=== PATIENT | female | born 1950 | race Caucasian/White ===

== ENCOUNTER 2017-11-23 13:51 | Outpatient (REF) | payer MEDICARE, SELFPAY ==
[2017-11-23 23:40] LABS: Abs Immature Grans 0.05 k/cumm (0.0-0.09); Absolute Basophil Count 0.06 k/cumm (0.0-0.2); Absolute Eosinophil Count 0.28 k/cumm (0.0-0.7); Absolute Lymphocyte Count 2.89 k/cumm (1.2-3.4); Absolute Monocyte Count 0.65 k/cumm (0.11-0.7); Absolute Neutrophil Count 5.39 k/cumm (1.2-6.7); Basophils % 0.6; HCT 43.5 % (36.0-46.0); HGB 13.7 g/dL (12.0-15.5); Immature Grans % 0.5; Mean Corp. HGB Concentration 31.5 g/dL (32.0-36.0); Mean Corpuscular Hemoglobin 27.6 pg (27.0-33.0); Mean Corpuscular Volume 87.5 fL (80-95); Mean Platelet Volume 10.8 fL (8.0-11.0); Neutrophils % 57.9; Platelet Count 326 x1000/uL (130-400); RBC 4.97 m/cumm (4.00-5.20); RBC Distribution Width 14.7 % (11.7-14.6); White Blood Cell Count 9.32 k/cumm (4.4-10.8)
[2017-11-23 23:51] LABS: Anion Gap 6.1 mmol/L (3-11); BUN 10 mg/dL (7-18); CO2 29.9 mmol/L (21.0-32.0); CREATININE 0.93 mg/dL (0.55-1.02); Calcium 9.7 mg/dL (8.5-10.1); Chloride 107 mmol/L (98-107); Estimated GFR 59.95 (mL/min/1.73m2); Glucose 98 mg/dL (70-100); Potassium 5.3 mmol/L (3.5-5.1); Sodium 143 mmol/L (136-145)
== END 2017-11-23 14:11 ==
LOC: NCHCN 13:51
PROVIDERS: Visit Provider Registered Nurse
DX: R55 Syncope and collapse (principal)
CPT/HCPCS: 80048; 85025

== ENCOUNTER 2017-12-12 11:59 | Outpatient (REF) | payer MEDICARE, SELFPAY | END 2017-12-12 12:19 | LOC: NCHCN 11:59 | PROVIDERS: Visit Provider Family Medicine | DX: I10 Essential (primary) hypertension (principal); E03.9 Hypothyroidism, unspecified; E78.5 Hyperlipidemia, unspecified; E11.9 Type 2 diabetes mellitus without complications | CPT/HCPCS: 84132 ==

== ENCOUNTER 2018-01-18 17:55 | Outpatient (REF) | payer MEDICARE, SELFPAY ==
[2018-01-18 22:44] LABS: Potassium 3.8 mmol/L (3.5-5.1)
== END 2018-01-18 18:15 ==
LOC: NCHCN 17:55
PROVIDERS: Visit Provider Family Medicine
DX: Z86.39 Personal history of other endocrine, nutritional and metabolic disease (principal); R69 Illness, unspecified
CPT/HCPCS: 84132

== ENCOUNTER 2018-07-19 16:26 | Outpatient (REF) | payer MEDICARE, SELFPAY ==
[2018-07-19 22:28] LABS: ALT 25 U/L (12-78); AST 15 U/L (15-37); Albumin 3.9 g/dL (3.4-5.0); Alkaline Phosphatase 150 U/L (46-116); Anion Gap 9.3 mmol/L (3-11); BUN 11 mg/dL (7-18); Bilirubin, Total 0.5 mg/dL (0.2-1.0); CO2 27.7 mmol/L (21.0-32.0); Calcium 9.2 mg/dL (8.5-10.1); Chloride 103 mmol/L (98-107); Glucose 87 mg/dL (70-100); Sodium 140 mmol/L (136-145); TSH (W/Ref FT4) 2.88 uIU/mL (0.358-3.74); Total Protein 7.3 g/dL (6.4-8.2)
== END 2018-07-19 16:46 ==
LOC: NCHCN 16:26
PROVIDERS: Visit Provider Family Medicine
DX: E03.9 Hypothyroidism, unspecified (principal); I10 Essential (primary) hypertension
CPT/HCPCS: 80053; 84443

== ENCOUNTER 2019-01-16 13:11 | Outpatient (REF) | payer MEDICARE, SELFPAY ==
[2019-01-16 22:53] LABS: ALT 27 U/L (14-59); AST 17 U/L (15-37); Albumin 3.9 g/dL (3.4-5.0); Alkaline Phosphatase 150 U/L (46-116); Bilirubin, Direct 0.12 mg/dL (0.00-0.20); Bilirubin, Total 0.5 mg/dL (0.2-1.0); Total Protein 7.1 g/dL (6.4-8.2)
== END 2019-01-16 13:31 ==
LOC: NCHCN 13:11
PROVIDERS: Visit Provider Family Medicine
DX: E11.9 Type 2 diabetes mellitus without complications (principal); M79.10 Myalgia, unspecified site
CPT/HCPCS: 80076; 83036

== ENCOUNTER 2019-07-16 11:12 | Outpatient (REF) | payer MEDICARE, SELFPAY ==
[2019-07-16 21:08] LABS: Anion Gap 6.9 mmol/L (3-11); BUN 14 mg/dL (7-18); CO2 30.1 mmol/L (21.0-32.0); CREATININE 0.82 mg/dL (0.55-1.02); Calcium 9.6 mg/dL (8.5-10.1); Chloride 103 mmol/L (98-107); Glucose 188 mg/dL (74-106); Potassium 3.8 mmol/L (3.5-5.1); Sodium 140 mmol/L (136-145)
[2019-07-16 21:19] LABS: Hemoglobin A1C 6.2 % (3.8-5.6)
[2019-07-16 23:46] LABS: Vitamin D 25 Total 14.5 ng/ml (30-100)
== END 2019-07-16 11:32 ==
LOC: NCHCN 11:12
PROVIDERS: Visit Provider Family Medicine
DX: E11.9 Type 2 diabetes mellitus without complications (principal); R74.8 Abnormal levels of other serum enzymes; E55.9 Vitamin D deficiency, unspecified; I10 Essential (primary) hypertension
CPT/HCPCS: 80048; 82306; 83036

== ENCOUNTER 2020-01-08 10:35 | Outpatient (REF) | payer MEDICARE, SELFPAY ==
[2020-01-08 22:18] LABS: Anion Gap 9.8 mmol/L (3-11); BUN 22 mg/dL (7-18); CO2 27.2 mmol/L (21.0-32.0); Calcium 9.2 mg/dL (8.5-10.1); Calculated LDL 75 mg/dL (<100); Chloride 105 mmol/L (98-107); Cholesterol 161 mg/dL (<200); Estimated GFR 40.49 (mL/min/1.73m2); Glucose 99 mg/dL (74-106); HDL Cholesterol 41 mg/dL (40-60); Sodium 142 mmol/L (136-145); TSH 2.29 uIU/mL (0.36-3.74); Triglyceride 225 mg/dL (<150)
== END 2020-01-08 10:55 ==
LOC: NCHCN 10:35
PROVIDERS: Visit Provider Family Medicine
DX: E03.9 Hypothyroidism, unspecified (principal); E11.9 Type 2 diabetes mellitus without complications; E78.5 Hyperlipidemia, unspecified; I10 Essential (primary) hypertension
CPT/HCPCS: 80048; 80061; 84443

== ENCOUNTER 2020-01-11 10:32 | Outpatient (REF) | payer MEDICARE, SELFPAY ==
[2020-01-11 21:45] LABS: Anion Gap 8.4 mmol/L (3-11); BUN 18 mg/dL (7-18); CO2 27.6 mmol/L (21.0-32.0); CREATININE 1.15 mg/dL (0.55-1.02); Calcium 9.7 mg/dL (8.5-10.1); Chloride 103 mmol/L (98-107); Estimated GFR 46.65 (mL/min/1.73m2); Glucose 115 mg/dL (74-106); Potassium 4.1 mmol/L (3.5-5.1); Sodium 139 mmol/L (136-145)
== END 2020-01-11 10:52 ==
LOC: NCHCN 10:32
PROVIDERS: Visit Provider Family Medicine
DX: I10 Essential (primary) hypertension (principal); E11.8 Type 2 diabetes mellitus with unspecified complications
CPT/HCPCS: 80048

== ENCOUNTER 2021-02-23 17:10 | Outpatient (REF) | payer OTHER, MEDICAID, SELFPAY ==
[2021-02-23 19:16] LABS: TSH 1.71 uIU/mL (0.36-3.74)
== END 2021-02-23 17:11 | disposition home or self-care (01) ==
LOC: NCHCN 17:10
PROVIDERS: Visit Provider Family Medicine
DX: E03.9 Hypothyroidism, unspecified (principal)
CPT/HCPCS: 84443

== ENCOUNTER 2021-04-28 18:04 | Outpatient (REF) | payer OTHER, MEDICAID, SELFPAY ==
[2021-04-28 21:40] LABS: ALT 27 U/L (14-59); AST 20 U/L (15-37); Albumin 3.7 g/dL (3.4-5.0); Alkaline Phosphatase 135 U/L (46-116); Anion Gap 11.4 mmol/L (3-11); BUN 18 mg/dL (7-18); Bilirubin, Total 0.4 mg/dL (0.2-1.0); CO2 25.6 mmol/L (21.0-32.0); CREATININE 0.9 mg/dL (0.55-1.02); Calcium 9.3 mg/dL (8.5-10.1); Calculated LDL 76 mg/dL (<100); Chloride 103 mmol/L (98-107); Cholesterol 152 mg/dL (<200); Glucose 97 mg/dL (74-106); HDL Cholesterol 50 mg/dL (40-60); Potassium 3.9 mmol/L (3.5-5.1); Sodium 140 mmol/L (136-145); Triglyceride 133 mg/dL (<150)
== END 2021-04-28 18:05 | disposition home or self-care (01) ==
LOC: NCHCN 18:04
PROVIDERS: Visit Provider Family Medicine
DX: E11.8 Type 2 diabetes mellitus with unspecified complications (principal); E78.5 Hyperlipidemia, unspecified; I10 Essential (primary) hypertension
CPT/HCPCS: 80053; 80061

== ENCOUNTER 2021-11-25 21:43 | Outpatient (REF) | payer OTHER, MEDICAID, SELFPAY ==
[2021-11-25 22:40] LABS: Anion Gap 7.1 mmol/L (3-11); BUN 14 mg/dL (7-18); CO2 27.9 mmol/L (21.0-32.0); CREATININE 0.9 mg/dL (0.55-1.02); Calcium 9.3 mg/dL (8.5-10.1); Chloride 105 mmol/L (98-107); Estimated GFR 67.92 (mL/min/1.73m2); Glucose 121 mg/dL (74-106); Potassium 3.8 mmol/L (3.5-5.1); Sodium 140 mmol/L (136-145)
== END 2021-11-25 21:44 | disposition home or self-care (01) ==
LOC: NCHCN 21:43
PROVIDERS: Visit Provider Family Medicine
DX: I10 Essential (primary) hypertension (principal)
CPT/HCPCS: 80048

== ENCOUNTER 2022-02-23 17:50 | Outpatient (REF) | payer OTHER, SELFPAY ==
[2022-02-23 16:32] LABS: TSH 2.43 uIU/mL (0.36-3.74)
== END 2022-02-23 17:51 | disposition home or self-care (01) ==
LOC: NCHCN 17:50
PROVIDERS: Visit Provider Family Medicine
DX: E03.9 Hypothyroidism, unspecified (principal)
CPT/HCPCS: 84443

== ENCOUNTER 2022-10-27 14:19 | Outpatient (REF) | payer OTHER, SELFPAY ==
[2022-10-27 21:01] LABS: Hemoglobin A1C 5.5 % (<5.7)
[2022-10-27 21:03] LABS: Anion Gap 9.3 mmol/L (3-11); BUN 21 mg/dL (7-18); CO2 26.7 mmol/L (21.0-32.0); Calcium 9.6 mg/dL (8.5-10.1); Chloride 104 mmol/L (98-107); Estimated GFR 59.49 (mL/min/1.73m2); Glucose 91 mg/dL (74-106); Sodium 140 mmol/L (136-145)
== END 2022-10-27 14:20 | disposition home or self-care (01) ==
LOC: NCHCN 14:19
PROVIDERS: Visit Provider Family Medicine
DX: E11.8 Type 2 diabetes mellitus with unspecified complications (principal); I10 Essential (primary) hypertension; E66.3 Overweight
CPT/HCPCS: 80048; 83036

== ENCOUNTER 2023-02-18 15:03 | Emergency (ER) | payer OTHER, SELFPAY ==
[2023-02-18 15:11] VITALS: BP 112/54; PULSE 72; RESP 18; TEMP 36.5; O2SAT 95
--- NOTE | 2023-02-18 16:00 | RT.EKG_ITS ---
APPROVED REPORT Exam: Resting ECG Reason for Exam: weakness Patient Location: E HR:65 bpm ECG Measurements Heart Rate 65 AXIS MN 127 P 40 QRSd 82 QRS 1 QT 399 T 15 QTc 413 Conclusion Sinus rhythm...normal P axi pvc
--- OUTSIDE RECORDS SUMMARY | 2023-02-18 16:00 | XMS_ITS | Continuity of Care Document ---
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 Name Role Phone [facility]ici an Encounter [facility] Date(s): 01/17/23 - 01/17/[address] [id number] Encounter Diagnosis Head injury(Discharge Diagnosis) - 01/17/23 Fall at home(Discharge Diagnosis) - 01/17/[address] in unspecified non-institutional (private) residence as the place of occurrence of the external cause(Discharge Diagnosis) - 01/17/23 Discharge Disposition: Home or Self Care Attending Physician: Hugo Pisano MD Admitting Physician: Hugo Pisano MD Allergies, Adverse Reactions, Alerts Substance Reaction Severity Status prochlorperazine Unknown Active lisinopril Unknown Active sulfa drugs Unknown Active Functional Status 01/17/23 Family Member Travel History No recent t ravel Recent Travel History No recent travel Other exposure to Infectious Disease Non e Immunizations Given and Recorded Vaccine Date Status Refusal Reason SARS-CoV-2 (COVID-19) mRNA-1273 vaccine 05/14/20 R ecorded SARS-CoV-2 (COVID-19) mRNA-1273 vaccine 04/14/20 R ecorded tetanus/diphth/pertuss (Tdap) adult/adol 12/19/19 Recorded Medications amLODIPine 10 mg =, Daily, 0 Refill(s) Start Date: 09/06/22 Status: Ordered atorvastatin 40 mg =, Daily, 0 Refill(s) Start Date: 09/06/22 Status: Ordered diclofenac 0 Refill(s) Start Date: 09/06/22 Status: Ordered dilTIAZem 120 mg =, Daily, 0 Refill(s) Start Date: 09/06/22 Status: Ordered FLUoxetine 40 mg =, Daily, 0 Refill(s) Start Date: 09/06/22 Status: Ordered gabapentin 100 mg =, 0 Refill(s) Start Date: 09/06/22 Status: Ordered levothyroxine 50 mcg =, 0 Refill(s) Start Date: 09/06/22 Status: Ordered losartan-hydrochlorothiazide 50mg-12.5mg oral tablet 2 tab, Oral, Daily, # 60 tab, 0 Refill(s) Start Date: 09/06/22 Status: Ordered metFORMIN 500 mg =, Daily, 0 Refill(s) Start Date: 09/06/22 Status: Ordered Vitamin D with Minerals oral tablet, chewable 0 Refill(s) Start Date: 09/06/22 Status: Ordered Mental Status 01/17/23 Eye Opening Response [place] Spontaneous ly Best Verbal Response Con Oriented Best Motor Response Con Obeys comman ds [place] Coma Score 15 Results Laboratory List Name Date CBC w/ Diff 01/17/23 Comprehensive Metabolic Panel 01/17/23 Troponin-I 01/17/23 Automated Diff 01/17/23 Most recent to oldest [Reference Range]: 1 WBC [5.0-10.0 x10^3/mcL] 11.8 x10^3/mcL *HI* (01/17/23 4:00 PM) RBC [4.1-5.3 x10^6/mcL] 5.3 x10^6/mcL (01/17/23 4:00 PM) Neutro Auto [40.0-75.0 %] 63.2 % (01/17/23 4:00 PM) Lymph Auto [20.0-50.0 %] 26.7 % (01/17/23 4:00 PM) Lyon Auto [2.0-15.0 %] 8.1 % (01/17/23 4:00 PM) Basophil Auto [0.0-1.0 %] 0.4 % (01/17/23 4:00 PM) BUN [7-18 mg/dL] 20 mg/dL *HI* (01/17/23 4:00 PM) Glucose Level [74-106 mg/dL] 123 mg/dL *HI* (01/17/23 4:00 PM) Potassium Level [3.5-5.1 mmol/L] 3.1 mmo l/L *LOW* (01/17/23 4:00 PM) MCV [80.0-96.0 fL] 84.2 fL (01/17/23 4:00 PM) AST [15-37 unit/L] 21 unit/L (01/17/23 4:00 PM) ALT [14-59 unit/L] 27 unit/L (01/17/23 4:00 PM) MCHC [31.0-35.0 g/dL] 33.9 g/dL (01/17/23 4:00 PM) Troponin-I [0.0-51.4 pg/mL] 6.7 pg/mL (01/17/23 4:00 PM) Sodium Level [136-145 mmol/L] 139 mmol/L (01/17/23 4:00 PM) Hct [37.0-47.0 %] 44.6 % (01/17/23 4:00 PM) Calcium Level [8.5-10.1 mg/dL] 9.7 mg/dL (01/17/23 4:00 PM) Albumin Level [3.4-5.0 g/dL] 4.2 g/dL (01/17/23 4:00 PM) Protein Total [6.4-8.2 g/dL] 7.5 g/dL (01/17/23 4:00 PM) MCH [26.0-32.0 pg] 28.5 pg (01/17/23 4:00 PM) Neutro Absolute 7.5 x10^3/mcL *NA* (01/17/23 4:00 PM) Bilirubin Total [0.2-1.0 mg/dL] 0.5 mg/d L (01/17/23 4:00 PM) Hgb [12.0-16.0 g/dL] 15.1 g/dL (01/17/23 4:00 PM) Alk Phos [46-146 unit/L] 94 unit/L (01/17/23 4:00 PM) Platelets [130-450 x10^3/mcL] 395 x10^3/ mcL (01/17/23 4:00 PM) CO2 [21-32 mmol/L] 26 mmol/L (01/17/23 4:00 PM) eGFR Non-AA [>=60] 59 *LOW* (01/17/23 4:00 PM) eGFR AA [>=60] 59 *LOW* (01/17/23 4:00 PM) Chloride Level [98-107 mmol/L] 100 mmol/ L (01/17/23 4:00 PM) RDW-CV [11.5-14.5 %] 13.4 % (01/17/23 4:00 PM) Imm Gran Auto [0.0-0.9 %] 0.8 % (01/17/23 4:00 PM) Creatinine Level [0.55-1.02 mg/dL] 1.01 mg/dL (01/17/23 4:00 PM) Eos, Auto [1.0-6.0 %] 0.8 % *LOW* (01/17/23 4:00 PM) Vital Signs Most recent to oldest [Reference Range]: 1 Temperature Temporal Artery [36-38 Deg C ] 36.2 Deg C (01/17/23 3:31 PM) Peripheral Pulse Rate [60-100 bpm] 75 bp m (01/17/23 3:31 PM) Respiratory Rate [12-24 br/min] 16 br/mi n (01/17/23 3:31 PM) Blood Pressure [90-140/60-90 mmHg] 116/7 2mmHg (01/17/23 3:31 PM) Mean Arterial Pressure, Cuff [65-140 mmH g] 87 mmHg (01/17/23 3:31 PM) Weight Dosing 66.00 kg (01/17/23 3:36 PM) Weight Estimated 66.00 kg (01/17/23 3:31 PM) Height 160.000 cm (01/17/23 3:36 PM) Height/Length Estimated 160.000 cm (01/17/23 3:31 PM) Social History Social History Type Response Tobacco Never tobacco user T obacco Use:. Sex Female Hospital Discharge Instructions Patient Education 01/17/2023 17:24:05 Head Injury, Adult, Fuch-ce-Twvy Head Injury, Adult There are many types of head injuries. They can be as minor as a small bump. Some head injuries canbe worse. Worse injuries include: ??? A strong hit to the head that shakes the brain back and forth, causing damage (concussion). ??? A bruise (contusion) of the brain. This means there is bleeding in the brain that can cause swelling. ??? A cracked skull (skull fracture). ??? Bleeding in the brain that gathers, gets thick (makes a clot), and forms a bump (hematoma). Most problems from a head injury come in the first 24 hours. However, you may still have side effects up to 7???10 days after your injury. It is important to watch your condition for any changes. Youmay need to be watched in the emergency department or urgent care, or you may need to stay in the hospital. What are the causes? There are many possible causes of a head injury. A serious head injury may be caused by: ??? A car accident. ??? Bicycle or motorcycle accidents. ??? Sports injuries. ??? Falls. ??? Being hit by an object. What are the signs or symptoms? Symptoms of a head injury include a bruise, bump, or bleeding where the injury happened. Other physical symptoms may include: ??? Headache. ??? Feeling like you may vomit (nauseous) or vomiting. ??? Dizziness. ??? Blurred or double vision. ??? Being uncomfortable around bright lights or loud noises. ??? Shaking movements that you cannot control (seizures). ??? Feeling tired. ??? Trouble being woken up. ??? Fainting or loss of consciousness. Mental or emotional symptoms may include: ??? Feeling grumpy or cranky. ??? Confusion and memory problems. ??? Having trouble paying attention or concentrating. ??? Changes in eating or sleeping habits. ??? Feeling worried or nervous (anxious). ??? Feeling sad (depressed). How is this treated? Treatment for this condition depends on how severe the injury is and the type of injury you have. The main goal is to prevent problems and to allow the brain time to heal. Mild head injury If you have a mild head injury, you may be sent home, and treatment may include: ??? Being watched. A responsible adult should stay with you for 24 hours after your injury and check on you often. ??? Physical rest. ??? Brain rest. ??? Pain medicines. Severe head injury If you have a severe head injury, treatment may include: ??? Being watched closely. This includes staying in the hospital. ??? Medicines to: ??? Help with pain. ??? Prevent seizures. ??? Help with brain swelling. ??? Protecting your airway and using a machine that helps you breathe (ventilator). ??? Treatments to watch for and manage swelling inside the brain. ??? Brain surgery. This may be needed to: ??? Remove a collection of blood or blood clots. ??? Stop the bleeding. ??? Remove a part of the skull. This allows room for the brain to swell. Follow these instructions at home: Activity ??? Rest. ??? Avoid activities that are hard or tiring. ??? Make sure you get enough sleep. ??? Let your brain rest. Do this by limiting activities that need a lot of thought or attention, such as: ??? Watching TV. ??? Playing memory games and puzzles. ??? Job-related work or homework. ??? Working on the computer, social media, and texting. ??? Avoid activities that could cause another head injury until your doctor says it is okay. This includes playing sports. Having another head injury, especially before the first one has healed, can be dangerous. ??? Ask your doctor when it is safe for you to go back to your normal activities, such as work or school. Ask your doctor for a dxav-bk-yvct plan for slowly going back to your normal activities. ??? Ask your doctor when you can drive, ride a bicycle, or use heavy machinery. Do not do these activities if you are dizzy. Lifestyle ??? Do not drink alcohol until your doctor says it is okay. ??? Do not use drugs. ??? If it is harder than usual to remember things, write them down. ??? If you are easily distracted, try to do one thing at a time. ??? Talk with family members or close friends when making important decisions. ??? Tell your friends, family, a trusted co-worker, and chamber worker about your injury, symptoms, and limits (restrictions). Have them watch for any problems that are new or getting worse. General instructions ??? Take kjcv-ahc-jdpkpfy and prescription medicines only as told by your doctor. ??? Have someone stay with you for 24 hours after your head injury. This person should watch you for any changes in your symptoms and be ready to get help. ??? Keep all follow-up visits as told by your doctor. This is important. How is this prevented? Work on your balance and strength. This can help you avoid falls. ??? Wear a seat belt when you are in a moving vehicle. ??? Wear a helmet when you: ??? Ride a bicycle. ??? Ski. ??? Do any other sport or activity that has a risk of injury. ??? If you drink alcohol: ??? Limit how much you use to: ??? 0???1 drink a day for non women. ??? 0???2 drinks a day for men. ??? Be aware of how much alcohol is in your drink. In the [place] one drink equals one 12 oz bottle of beer (355 mL), one 5 oz glass of wine (148 mL), or one 1?? oz glass of hard liquor (44 mL). ??? Make your home safer by: ??? Getting rid of clutter from the floors and stairs. This includes things that can make you trip. ??? Using grab bars in bathrooms and handrails by stairs. ??? Placing non-slip mats on floors and in bathtubs. ??? Putting more light in dim areas. Where to find more information ??? Centers for Disease Control and Prevention: www.cdc.gov Get help right away if: ??? You have: ??? A very bad headache that is not helped by medicine. ??? Trouble walking or weakness in your arms and legs. ??? Clear or bloody fluid coming from your nose or ears. ??? Changes in how you see (vision). ??? A seizure. ??? More confusion or more grumpy moods. ??? Your symptoms get worse. ??? You are sleepier than normal and have trouble staying awake. ??? You lose your balance. ??? The black centers of your eyes (pupils) change in size. ??? Your speech is slurred. ??? Your dizziness gets worse. ??? You vomit. These symptoms may be an emergency. Do not wait to see if the symptoms will go away. Get medical help right away. Call your local emergency services (911 in the [place] Do not drive yourself to the hospital. Summary ??? Head injuries can be as minor as a small bump. Some head injuries can be worse. ??? Treatment for this condition depends on how severe the injury is and the type of injury you have. ??? Have someone stay with you for 24 hours after your head injury. ??? Ask your doctor when it is safe for you to go back to your normal activities, such as work or school. ??? To prevent a head injury, wear a seat belt in a car, wear a helmet when you use a bicycle, limit your alcohol use, and make your home safer. This information is not intended to replace advice given to you by your health care provider. Make sure you discuss any questions you have with your health care provider. Document Revised: 01/18/2020 Document Reviewed: 01/18/2020 [employer] Patient Education ?? 2022 [employer]. 01/17/2023 17:24:03 Fall Prevention in the Home, Adult, Akbt-mv-Uyff Fall Prevention in the Home, Adult Falls can cause injuries and can happen to people of all ages. There are many things you can do to make your home safe and to help prevent falls. Ask for help when making these changes. What actions can I take to prevent falls? General Instructions ??? Use good lighting in all rooms. Replace any light bulbs that burn out. ??? Turn on the lights in dark areas. Use night-lights. ??? Keep items that you use often in wvuz-ss-isfsf places. Lower the shelves around your home if needed. ??? Set up your furniture so you have a clear path. Avoid moving your furniture around. ??? Do not have throw rugs or other things on the floor that can make you trip. ??? Avoid walking on wet floors. ??? If any of your floors are uneven, fix them. ??? Add color or contrast paint or tape to clearly frederick and help you see: ??? Grab bars or handrails. ??? First and last steps of staircases. ??? Where the edge of each step is. ??? If you use a stepladder: ??? Make sure that it is fully opened. Do not climb a closed stepladder. ??? Make sure the sides of the stepladder are locked in place. ??? Ask someone to hold the stepladder while you use it. ??? Know where your pets are when moving through your home. What can I do in the bathroom? Keep the floor dry. Clean up any water on the floor right away. ??? Remove soap buildup in the tub or shower. ??? Use nonskid mats or decals on the floor of the tub or shower. ??? Attach bath mats securely with double-sided, nonslip rug tape. ??? If you need to sit down in the shower, use a plastic, nonslip stool. ??? Install grab bars by the toilet and in the tub and shower. Do not use towel bars as grab bars. What can I do in the bedroom? Make sure that you have a light by your bed that is easy to reach. ??? Do not use any sheets or blankets for your bed that hang to the floor. ??? Have a firm chair with side arms that you can use for support when you get dressed. What can I do in the kitchen? Clean up any spills right away. ??? If you need to reach something above you, use a step stool with a grab bar. ??? Keep electrical cords out of the way. ??? Do not use floor jordanian or wax that makes floors slippery. What can I do with my stairs? Do not leave any items on the stairs. ??? Make sure that you have a light switch at the top and the bottom of the stairs. ??? Make sure that there are handrails on both sides of the stairs. Fix handrails that are broken or loose. ??? Install nonslip stair treads on all your stairs. ??? Avoid having throw rugs at the top or bottom of the stairs. ??? Choose a carpet that does not hide the edge of the steps on the stairs. ??? Check carpeting to make sure that it is firmly attached to the stairs. Fix carpet that is looseor worn. What can I do on the outside of my home? Use bright outdoor lighting. ??? Fix the edges of walkways and driveways and fix any cracks. ??? Remove anything that might make you trip as you walk through a door, such as a raised step or threshold. ??? Trim any bushes or trees on paths to your home. ??? Check to see if handrails are loose or broken and that both sides of all steps have handrails. ??? Install guardrails along the edges of any raised decks and porches. ??? Clear paths of anything that can make you trip, such as tools or rocks. ??? Have leaves, snow, or ice cleared regularly. ??? Use sand or salt on paths during winter. ??? Clean up any spills in your garage right away. This includes grease or oil spills. What other actions can I take? Wear shoes that: ??? Have a low heel. Do not wear high heels. ??? Have rubber bottoms. ??? Feel good on your feet and fit well. ??? Are closed at the toe. Do not wear open-toe sandals. ??? Use tools that help you move around if needed. These include: ??? Canes. ??? Walkers. ??? Scooters. ??? Crutches. ??? Review your medicines with your doctor. Some medicines can make you feel dizzy. This can increase your chance of falling. Ask your doctor what else you can do to help prevent falls. Where to find more information ??? Centers for Disease Control and Prevention, [employer]: www.cdc.gov ??? National Madeline on Aging: www.jarod.nih.gov Contact a doctor if: ??? You are afraid of falling at home. ??? You feel weak, drowsy, or dizzy at home. ??? You fall at home. Summary ??? There are many simple things that you can do to make your home safe and to help prevent falls. ??? Ways to make your home safe include removing things that can make you trip and installing grab bars in the bathroom. ??? Ask for help when making these changes in your home. This information is not intended to replace advice given to you by your health care provider. Make sure you discuss any questions you have with your health care provider. Document Revised: 12/07/2021 Document Reviewed: 10/08/2020 [employer] Patient Education ?? 2022 [employer] Follow Up Care 01/17/2023 15:31:32 With:Alyx Verduzco MD Address: [address] [id number]- When:1 to 2 weeks Physician Emergency department Note * Hugo Pisano MD: PERFORM Event Display: ED Note Physician Authored Date: [id number] JUSTYNACYRIL CONTE :1950 Age:72 years Sex:Female Visit Date:01/17/2023 Primary Care Physician: Alyx Verduzco MD Basic Information Time Seen: Hugo Pisano MD / 01/17/2023 15:37 Chief Complaint FFSH backwards while attemepting to open door, up and fell again. Not thinned, arrives collared, full recall of event. ??2x episode emesis s/p falling. C spine tenderness. a/ox4. Right sided shoulderpain. no pain at rest History Of Present Illness: 72-year-old female??with a history of falls, because of this she has a lifeline,??today she was attempting to open the door to??of the delivery driver to come in when she fell backwards striking the back of her head.?? She proceeded to fall a couple more times afterwards, she was nauseous and vomited atsome point.?? Has some tenderness to the back of her head, she states that she fell but did not??pass out. ??At no time did she have any difficulty breathing or palpitation or chest pain??or sudden onset of headache prior to falling.?? She states that she has some tenderness to her neck and back ofhead. ??No anterior chest pain or abdominal pain.?? She was nauseous after eating once yesterday but otherwise no vomiting or diarrhea. ??Denies any extremity??weakness or injuries.?? No recent illness. ?? Patient??has a walker and a quad cane but she was not using it when she fell today.?? Her doctoris in [place].?? Has a history of falls and therefore carries a lifeline. Review of Systems: Constitutional:??no??fever,??no??chills,? Skin:??no??Jaundice,??no??rash,??no lacerations or abrasions ENMT:??no??ear pain,??no??sore throat,??no??congestion,? Respiratory:??no??shortness of breath,??no??cough,?? ,??no??wheezing Cardiovascular:??no??chest pain,??no??palpitations,??no??edema Gastrointestinal:??no??nausea,??no??vomiting,??no??diarrhea,??no??GI bleeding, no abdominal pain, vomited once yesterday but not nauseous today Genitourinary:??no??dysuria,??no??hematuria,??no??discharge,??no??pain Musculoskeletal:??See HPI Neurologic:??mild??headache,??no??dizziness,??no??numbness,??no??weakness ?? Physical Exam Vitals & Measurements T:??36.2?C ??(Temporal Artery)?? HR:??75??(Peripheral)?? RR:??16?? BP:??116/72?? SpO2:??99%?? HT:??160.000??cm?? WT:??66.00??kg??(Estimated)?? General:??alert,??no acute distress. Skin:??warm,??dry. Head:??no??trauma,??normocephalic.?? No mondragon signs no raccoon eyes, Neck:??trachea??midline,??no??adenopathy,??mild subjective nonfocal posterior tenderness. Eye:??normal??conjunctiva, sclera??clear. Cardiovascular:??regular??rate and rhythm,??normal??peripheral perfusion. Respiratory: lungs??CTA, respirations??non-labored. Chest wall:??no??deformity. Gastrointestinal:??soft,??non distended,??no??tenderness,??no??guarding. Extremities:??no??deformity,??no??trauma. Palpation of the thoracic and lumbar spine are unremarkable.?? She does report that her tailbone isslightly sore. Neurological:??oriented??x 4, LOC??appropriate for age??, speech??normal.?? Moves all 4 extremities. Psychiatric:??cooperative, affect??appropriate for age,?? Medical Decision Making: Medical Decision-Making: Clinical lab tests: ordered and reviewed -??Yes Tests in the radiology section of CPT??: ordered and reviewed -??Yes Tests in the medicine section of CPT??: ordered and reviewed -??Yes De Obtain history from someone other than the patient -??Yes, EMS Review and summarize past medical records -??Yes ?? Independent visualization of images, tracings, or specimens? Yes ?? Patient stable here, she reports that she has a history of falls, does not appear that she had a syncope prior to falling, imaging unremarkable, labs also reassuring.?? Patient was hemodynamically stable here. ?? After imaging, the patient got up, sitting her blood pressure was 129/104??and standing up she was 93/66 but she was asymptomatic. ??Nevertheless we will give her a liter of fluid. ??She reports thatthe ambulance noted her pulse to be??in the 40s when they picked her up.?? We will likely plan on??Zio patch??prior to discharge. ?? Last 24 Hours?? Chemistry ? Event Name?? Event Result?? Date/Time?? Sodium Level 139 mmol/L 01/17/23 16:00:00 Potassium Level 3.1 mmol/L??Low 01/17/23 16:00:00 Chloride Level 100 mmol/L 01/17/23 16:00:00 CO2 26 mmol/L 01/17/23 16:00:00 Alk Phos 94 unit/L 01/17/23 16:00:00 AST 21 unit/L 01/17/23 16:00:00 ALT 27 unit/L 01/17/23 16:00:00 BUN 20 mg/dL??High 01/17/23 16:00:00 Glucose Level 123 mg/dL??High 01/17/23 16:00:00 Creatinine Level 1.01 mg/dL 01/17/23 16:00:00 eGFR AA 59??Low 01/17/23 16:00:00 eGFR Non-AA 59??Low 01/17/23 16:00:00 Calcium Level 9.7 mg/dL 01/17/23 16:00:00 Protein Total 7.5 g/dL 01/17/23 16:00:00 Albumin Level 4.2 g/dL 01/17/23 16:00:00 Bilirubin Total 0.5 mg/dL 01/17/23 16:00:00 Troponin-I 6.7 pg/mL 01/17/23 16:00:00 ? Hematology ? Event Name?? Event Result?? Date/Time?? WBC 11.8 x10^3/mcL??High 01/17/23 16:00:00 RBC 5.3 x10^6/mcL 01/17/23 16:00:00 Hgb 15.1 g/dL 01/17/23 16:00:00 Hct 44.6 % 01/17/23 16:00:00 MCV 84.2 fL 01/17/23 16:00:00 MCH 28.5 pg 01/17/23 16:00:00 MCHC 33.9 g/dL 01/17/23 16:00:00 RDW-CV 13.4 % 01/17/23 16:00:00 Platelets 395 x10^3/mcL 01/17/23 16:00:00 Neutro Auto 63.2 % 01/17/23 16:00:00 Lymph Auto 26.7 % 01/17/23 16:00:00 Lyon Auto 8.1 % 01/17/23 16:00:00 Eos, Auto 0.8 %??Low 01/17/23 16:00:00 Basophil Auto 0.4 % 01/17/23 16:00:00 Imm Gran Auto 0.8 % 01/17/23 16:00:00 Neutro Absolute 7.5 x10^3/mcL 01/17/23 16:00:00 ? XR Pelvis 1 or 2 Views PROCEDURE INFORMATION:?? Exam: XR Pelvis?? Exam date and time: 01/17/2023 4:17 PM?? Age: 72 years old?? Clinical indication: Trauma? TECHNIQUE:?? Imaging protocol: Radiologic exam of the pelvis.?? Views: 1 or 2 view.? COMPARISON:?? CR XR HIP LT MIN 2V AND PELVIS 05/03/2021 8:32 AM? FINDINGS:?? Bones/joints: Degenerative changes in both hips and lumbar spine.?? There is no evidence of acute fracture in any of the visualized?? osseous structures.. There is no evidence of malalignment or?? dislocation of any visualized joint.?? Soft tissues: Unremarkable.? IMPRESSION:?? 1. ?? There is no evidence of acute fracture in any of the visualized?? osseous structures..?? 2. ?? There is no evidence of malalignment or dislocation of any?? visualized joint.? Report signed by: Halle Gibbons On 01/17/2023 ??16:56:15 ? [1] ?? XR Chest 1 View PROCEDURE INFORMATION:?? Exam: XR Chest?? Exam date and time: 01/17/2023 4:17 PM?? Age: 72 years old?? Clinical indication: Fall? TECHNIQUE:?? Imaging protocol: Radiologic exam of the chest.?? Views: 1 view.? COMPARISON:?? CR XR RIBS W/PA CHEST LT 05/03/2021 8:32 AM? FINDINGS:?? Lungs: Unremarkable. No consolidation.?? Pleural spaces: Unremarkable. No pleural effusion. No pneumothorax.?? Heart/Mediastinum: Unremarkable. No cardiomegaly.?? Bones/joints: Unremarkable.? Intraperitoneal space: Surgical clips in the right upper quadrant? IMPRESSION:?? No acute process ?? Report signed by: Halle Gibbosn On 01/17/2023 ??16:55:41 ?? [2] ?? URL This document has an image ?? XR Ankle Complete 3+ Views Right PROCEDURE INFORMATION:?? Exam: XR Right Ankle?? Exam date and time: 01/17/2023 4:23 PM?? Age: 72 years old?? Clinical indication: Injury? TECHNIQUE:?? Imaging protocol: Radiologic exam of the right ankle.?? Views: 3 or more views.? COMPARISON:?? CR XR ANKLE COMPLETE MIN 3V RT 09/06/2022 2:23 PM? FINDINGS:?? Bones/joints: Degenerative changes in the medial and lateral?? malleolus. There is no evidence of acute fracture in any of the?? visualized osseous structures.. There is no evidence of malalignment?? or dislocation of any visualized joint. Degenerative changes in the?? tarsal bones?? Soft tissues: Normal.? IMPRESSION:?? 1. ?? There is no evidence of acute fracture in any of the visualized?? osseous structures..?? 2. ?? There is no evidence of malalignment or dislocation of any?? visualized joint.? Report signed by: Halle Gibbons On 01/17/2023 ??16:55:02 ?? [3] * Final Report * ?? CT Spine Cervical w/o Contrast PROCEDURE INFORMATION:?? Exam: CT Cervical Spine Without Contrast?? Exam date and time: 01/17/2023 4:17 PM?? Age: 72 years old?? Clinical indication: Trauma? TECHNIQUE:?? Imaging protocol: Computed tomography of the cervical spine without?? contrast.?? Radiation optimization: All CT scans at this facility use at least?? one of these dose optimization techniques: automated exposure?? control; mA and/or kV adjustment per patient size (includes targeted?? exams where dose is matched to clinical indication); or iterative?? reconstruction.? REPORTING DATA:?? Count of CT and Cardiac NM exams in prior 12 months: This patient has?? received 2 known CTs and 0 known cardiac nuclear medicine studies in?? the 12 months prior to the current study.? COMPARISON:?? CT SPINE CERVICAL WO CONTRAST 09/06/2022 2:17 PM? FINDINGS:?? Bones/joints: There is normal alignment but reversal of lordosis. No?? fracture. Diffuse degenerative disc disease and facet arthropathy.?? Canal stenosis is noted at C4-C5.? Lungs: Visualized lung apices are clear.? Soft tissues: Unremarkable.? IMPRESSION:?? No acute findings.? Report signed by: Jesus Arteaga On 01/17/2023 ??16:43:18 ? [4] * Final Report * ?? CT Brain/Head w/o Contrast PROCEDURE INFORMATION:?? Exam: CT Head Without Contrast?? Exam date and time: 01/17/2023 4:16 PM?? Age: 72 years old?? Clinical indication: Fall, pain? TECHNIQUE:?? Imaging protocol: Computed tomography of the head without contrast.?? Radiation optimization: All CT scans at this facility use at least?? one of these dose optimization techniques: automated exposure?? control; mA and/or kV adjustment per patient size (includes targeted?? exams where dose is matched to clinical indication); or iterative?? reconstruction.? REPORTING DATA:?? Count of CT and Cardiac NM exams in prior 12 months: This patient has?? received 2 known CTs and 0 known cardiac nuclear medicine studies in?? the 12 months prior to the current study.? COMPARISON:?? CT HEAD/BRAIN WO CONTRAST 09/06/2022 2:15 PM? FINDINGS:?? Brain: Mild parenchymal volume loss. Mild bilateral periventricular?? and subcortical white matter hypodensities are present compatible?? with small-vessel ischemic disease. No midline shift. No mass, acute?? infarct, hemorrhage, or extra-axial fluid collection.?? Cerebral ventricles: No ventriculomegaly.?? Paranasal sinuses: Visualized sinuses are unremarkable. No fluid?? levels.?? Mastoid air cells: Visualized mastoid air cells are well aerated.?? Bones/joints: Unremarkable. No acute fracture.?? Soft tissues: Unremarkable.? IMPRESSION:?? No acute intracranial abnormality.? Report signed by: Jesus Arteaga On 01/17/2023 ??16:39:51 ? [5] Procedure No Qualifying Data Assessment/Plan 1.??Head injury??S09.90XA Ordered: Discharge Patient, 01/17/23 18:24:00 EDT, Home Independently, Constant Indicator ?? 2.??Fall at home??W19.XXXA Ordered: Discharge Patient, 01/17/23 18:24:00 EDT, Home Independently, Constant Indicator ?? Unspecified place in unspecified non-institutional (private) residence as the place of occurrence of the external cause??Y92.009 ?? Patient Education Head Injury, Adult, Rtlk-an-Kumw Fall Prevention in the Home, Adult, Znjm-oo-Hwqr Follow Up With When Contact Information [facility], Alyx Yu MD Within 1 to 2 weeks [facility] [address] [place] [address]- Additional Instructions: Medication Reconciliation Unchanged [id number] Milligrams every day. ?? [id number] Milligrams every day. ?? diclofenac ?? [id number] Milligrams every day. ?? COKtswgqzu39 Milligrams every day. ?? [id number] Milligrams. ?? gerrrnddoqyzn15 Micrograms. ?? losartan-hydrochlorothiazide (losartan-hydrochlorothiazide 50mg-12.5mg oral tablet)2 tab Oral (given by mouth) every day. ?? [id number] Milligrams every day. ?? multivitamin with minerals (Vitamin D with Minerals oral tablet, chewable) Problem List/Past Medical History Ongoing No qualifying data Historical No qualifying data Medication Administration Given 0.9% NaCl bolus, 1000 mL, IV Bolus Allergies lisinopril prochlorperazine sulfa drugs Social History Electronic Cigarette/Vaping Electronic Cigarette Use: Never. Tobacco Never tobacco user Tobacco Use:. Diagnostic Results ECG EKG shows sinus rhythm at a rate of 71 bpm. ??No ischemic changes.?? Prolonged QT at??502 ms Diagnostic Study Interpretation: CT scans of head and neck per radiologist are unremarkable. ??X-rays of chest pelvis and right ankle as interpreted by me are unremarkable. Lab Results CBC and Differential?? LATEST RESULTS?? WBC?? 01/17/23 16:00?? 11.8 ??High?? RBC?? 01/17/23 16:00?? 5.3?? Hgb?? 01/17/23 16:00?? 15.1?? Hct?? 01/17/23 16:00?? 44.6?? MCV?? 01/17/23 16:00?? 84.2?? MCH?? 01/17/23 16:00?? 28.5?? MCHC?? 01/17/23 16:00?? 33.9?? RDW-CV?? 01/17/23 16:00?? 13.4?? Platelets?? 01/17/23 16:00?? 395?? Neutro Auto?? 01/17/23 16:00?? 63.2?? Lymph Auto?? 01/17/23 16:00?? 26.7?? Lyon Auto?? 01/17/23 16:00?? 8.1?? Eos, Auto?? 01/17/23 16:00?? 0.8 ??Low?? Basophil Auto?? 01/17/23 16:00?? 0.4?? Imm Gran Auto?? 01/17/23 16:00?? 0.8?? Neutro Absolute?? 01/17/23 16:00?? 7.5? Routine Chemistry?? LATEST RESULTS?? Sodium Level?? 01/17/23 16:00?? 139?? Potassium Level?? 01/17/23 16:00?? 3.1 ??Low?? Chloride Level?? 01/17/23 16:00?? 100?? CO2?? 01/17/23 16:00?? 26?? Alk Phos?? 01/17/23 16:00?? 94?? AST?? 01/17/23 16:00?? 21?? ALT?? 01/17/23 16:00?? 27?? BUN?? 01/17/23 16:00?? 20 ??High?? Glucose Level?? 01/17/23 16:00?? 123 ??High?? Creatinine Level?? 01/17/23 16:00?? 1.01?? eGFR AA?? 01/17/23 16:00?? 59 ??Low?? eGFR Non-AA?? 01/17/23 16:00?? 59 ??Low?? Calcium Level?? 01/17/23 16:00?? 9.7?? Protein Total?? 01/17/23 16:00?? 7.5?? Albumin Level?? 01/17/23 16:00?? 4.2?? Bilirubin Total?? 01/17/23 16:00?? 0.5? Cardiac Isoenzymes?? LATEST RESULTS?? Troponin-I?? 01/17/23 16:00?? 6.7? [1]??XR Pelvis 1 or 2 Views; DomainUser, Generated 01/17/2023 16:17 EDT [2]??XR Chest 1 View; DomainUser, Generated 01/17/2023 16:17 EDT [3]??XR Ankle Complete 3+ Views Right; DomainUser, Generated 01/17/2023 16:23 EDT [4]??CT Spine Cervical w/o Contrast; DomainUser, Generated 01/17/2023 16:17 EDT [5]??CT Brain/Head w/o Contrast; DomainUser, Generated 01/17/2023 16:16 EDT Electronically Signed on 01/17/23 06:25 PM Hugo Pisano MD Emergency department Discharge instructions * Hugo Pisano MD: PERFORM Event Display: ED Discharge Information Authored Date: [id number] JUSTYNACYRIL CONTE :1950 Age:72 years Sex:Female Visit Date:01/17/2023 Primary Care Physician: Alyx Verduzco MD Discharge Instructions We would like to thank you for allowing us to assist you with your healthcare needs. The following includes patient education materials and information regarding your injury/illness. Diagnosis from Today's Visit Head injury Fall at home Unspecified place in unspecified non-institutional (private) residence as the place of occurrence of the external cause Discharge Vitals Temperature??(Temporal Artery) 97.2 ??F (36.2 ??C) Heart Rate??(Peripheral) 75 Respiratory Rate?? 16 Blood Pressure?? 116/72?? Height?? 62.99 in (160.000 cm) Weight??(Estimated) 145.53 lb (66.00 kg) Allergies lisinopril prochlorperazine sulfa drugs What to Do Next Instructions from Your Care Team Wear heart monitor??as arranged.?? Move around slowly, use your walker or your cane to ambulate to prevent falls,??follow-up with your doctor in the next week or 2 to review results of heart monitor.?? Continue your usual meds the same. You Need to Schedule the Following Appointments Follow Up with??[facility], Alyx Yu MD When:??Within 1 to 2 weeks Where: [address] [address] You were treated today on an emergency basis; it may be agudelo to contact your primary care provider to notify them of your visit today. You may have been referred to your regular doctor or a specialist, please follow up as instructed. If your condition worsens or you can't get in to see the doctor, contact the Emergency Department. Medications What How Much When Instructions Next Dose Unchanged amLODIPine 10 Milligrams Every day Unchanged atorvastatin 40 Milligrams Every day Unchanged diclofenac Unchanged dilTIAZem 120 Milligrams Every day Unchanged FLUoxetine 40 Milligrams Every day Unchanged gabapentin 100 Milligrams Unchanged levothyroxine 50 Micrograms Unchanged losartan-hydrochlorothiazide (losartan-hydrochlorothiazide 50mg-12.5mg oral tablet) 2 tab Oral (given by mouth) Every day Unchanged metFORMIN 500 Milligrams Every day Unchanged multivitamin with minerals (Vitamin D with Minerals oral tablet, chewable) Education Materials Head Injury, Adult There are many types of head injuries. They can be as minor as a small bump. Some head injuries canbe worse. Worse injuries include: ? A strong hit to the head that shakes the brain back and forth, causing damage (concussion). ? A bruise (contusion) of the brain. This means there is bleeding in the brain that can cause swelling. ? A cracked skull (skull fracture). ? Bleeding in the brain that gathers, gets thick (makes a clot), and forms a bump (hematoma). Most problems from a head injury come in the first 24 hours. However, you may still have side effects up to 7???10 days after your injury. It is important to watch your condition for any changes. Youmay need to be watched in the emergency department or urgent care, or you may need to stay in the hospital. What are the causes? There are many possible causes of a head injury. A serious head injury may be caused by: ? A car accident. ? Bicycle or motorcycle accidents. ? Sports injuries. ? Falls. ? Being hit by an object. What are the signs or symptoms? Symptoms of a head injury include a bruise, bump, or bleeding where the injury happened. Other physical symptoms may include: ? Headache. ? Feeling like you may vomit (nauseous) or vomiting. ? Dizziness. ? Blurred or double vision. ? Being uncomfortable around bright lights or loud noises. ? Shaking movements that you cannot control (seizures). ? Feeling tired. ? Trouble being woken up. ? Fainting or loss of consciousness. Mental or emotional symptoms may include: ? Feeling grumpy or cranky. ? Confusion and memory problems. ? Having trouble paying attention or concentrating. ? Changes in eating or sleeping habits. ? Feeling worried or nervous (anxious). ? Feeling sad (depressed). How is this treated? Treatment for this condition depends on how severe the injury is and the type of injury you have. The main goal is to prevent problems and to allow the brain time to heal. Mild head injury If you have a mild head injury, you may be sent home, and treatment may include: ? Being watched. A responsible adult should stay with you for 24 hours after your injury and check onyou often. ? Physical rest. ? Brain rest. ? Pain medicines. Severe head injury If you have a severe head injury, treatment may include: ? Being watched closely. This includes staying in the hospital. ? Medicines to: ? Help with pain. ? Prevent seizures. ? Help with brain swelling. ? Protecting your airway and using a machine that helps you breathe (ventilator). ? Treatments to watch for and manage swelling inside the brain. ? Brain surgery. This may be needed to: ? Remove a collection of blood or blood clots. ? Stop the bleeding. ? Remove a part of the skull. This allows room for the brain to swell. Follow these instructions at home: Activity ? Rest. ? Avoid activities that are hard or tiring. ? Make sure you get enough sleep. ? Let your brain rest. Do this by limiting activities that need a lot of thought or attention, such as: ? Watching TV. ? Playing memory games and puzzles. ? Job-related work or homework. ? Working on the computer, social media, and texting. ? Avoid activities that could cause another head injury until your doctor says it is okay. This includes playing sports. Having another head injury, especially before the first one has healed, can be dangerous. ? Ask your doctor when it is safe for you to go back to your normal activities, such as work or school. Ask your doctor for a ygvb-ml-zqgg plan for slowly going back to your normal activities. ? Ask your doctor when you can drive, ride a bicycle, or use heavy machinery. Do not do these activities if you are dizzy. Lifestyle ? Do not drink alcohol until your doctor says it is okay. ? Do not use drugs. ? If it is harder than usual to remember things, write them down. ? If you are easily distracted, try to do one thing at a time. ? Talk with family members or close friends when making important decisions. ? Tell your friends, family, a trusted co-worker, and chamber worker about your injury, symptoms, and limits (restrictions). Have them watch for any problems that are new or getting worse. General instructions ? Take hiyl-lny-irjrhng and prescription medicines only as told by your doctor. ? Have someone stay with you for 24 hours after your head injury. This person should watch you for any changes in your symptoms and be ready to get help. ? Keep all follow-up visits as told by your doctor. This is important. How is this prevented? Work on your balance and strength. This can help you avoid falls. ? Wear a seat belt when you are in a moving vehicle. ? Wear a helmet when you: ? Ride a bicycle. ? Ski. ? Do any other sport or activity that has a risk of injury. ? If you drink alcohol: ? Limit how much you use to: ? 0???1 drink a day for non women. ? 0???2 drinks a day for men. ? Be aware of how much alcohol is in your drink. In the [place] one drink equals one 12 oz bottle of beer (355 mL), one 5 oz glass of wine (148 mL), or one 1?? oz glass of hard liquor (44 mL). ? Make your home safer by: ? Getting rid of clutter from the floors and stairs. This includes things that can make you trip. ? Using grab bars in bathrooms and handrails by stairs. ? Placing non-slip mats on floors and in bathtubs. ? Putting more light in dim areas. Where to find more information ? Centers for Disease Control and Prevention: www.cdc.gov Get help right away if: ? You have: ? A very bad headache that is not helped by medicine. ? Trouble walking or weakness in your arms and legs. ? Clear or bloody fluid coming from your nose or ears. ? Changes in how you see (vision). ? A seizure. ? More confusion or more grumpy moods. ? Your symptoms get worse. ? You are sleepier than normal and have trouble staying awake. ? You lose your balance. ? The black centers of your eyes (pupils) change in size. ? Your speech is slurred. ? Your dizziness gets worse. ? You vomit. These symptoms may be an emergency. Do not wait to see if the symptoms will go away. Get medical help right away. Call your local emergency services (911 in the [place] Do not drive yourself to the hospital. Summary ? Head injuries can be as minor as a small bump. Some head injuries can be worse. ? Treatment for this condition depends on how severe the injury is and the type of injury you have. ? Have someone stay with you for 24 hours after your head injury. ? Ask your doctor when it is safe for you to go back to your normal activities, such as work or school. ? To prevent a head injury, wear a seat belt in a car, wear a helmet when you use a bicycle, limit your alcohol use, and make your home safer. This information is not intended to replace advice given to you by your health care provider. Make sure you discuss any questions you have with your health care provider. Document Revised: 01/18/2020 Document Reviewed: 01/18/2020 [employer] Patient Education ?? [address] [employer] Fall Prevention in the Home, Adult Falls can cause injuries and can happen to people of all ages. There are many things you can do to make your home safe and to help prevent falls. Ask for help when making these changes. What actions can I take to prevent falls? General Instructions ? Use good lighting in all rooms. Replace any light bulbs that burn out. ? Turn on the lights in dark areas. Use night-lights. ? Keep items that you use often in vgje-ok-jqtsk places. Lower the shelves around your home if needed. ? Set up your furniture so you have a clear path. Avoid moving your furniture around. ? Do not have throw rugs or other things on the floor that can make you trip. ? Avoid walking on wet floors. ? If any of your floors are uneven, fix them. ? Add color or contrast paint or tape to clearly frederick and help you see: ? Grab bars or handrails. ? First and last steps of staircases. ? Where the edge of each step is. ? If you use a stepladder: ? Make sure that it is fully opened. Do not climb a closed stepladder. ? Make sure the sides of the stepladder are locked in place. ? Ask someone to hold the stepladder while you use it. ? Know where your pets are when moving through your home. What can I do in the bathroom? Keep the floor dry. Clean up any water on the floor right away. ? Remove soap buildup in the tub or shower. ? Use nonskid mats or decals on the floor of the tub or shower. ? Attach bath mats securely with double-sided, nonslip rug tape. ? If you need to sit down in the shower, use a plastic, nonslip stool. ? Install grab bars by the toilet and in the tub and shower. Do not use towel bars as grab bars. What can I do in the bedroom? Make sure that you have a light by your bed that is easy to reach. ? Do not use any sheets or blankets for your bed that hang to the floor. ? Have a firm chair with side arms that you can use for support when you get dressed. What can I do in the kitchen? Clean up any spills right away. ? If you need to reach something above you, use a step stool with a grab bar. ? Keep electrical cords out of the way. ? Do not use floor jordanian or wax that makes floors slippery. What can I do with my stairs? Do not leave any items on the stairs. ? Make sure that you have a light switch at the top and the bottom of the stairs. ? Make sure that there are handrails on both sides of the stairs. Fix handrails that are broken or loose. ? Install nonslip stair treads on all your stairs. ? Avoid having throw rugs at the top or bottom of the stairs. ? Choose a carpet that does not hide the edge of the steps on the stairs. ? Check carpeting to make sure that it is firmly attached to the stairs. Fix carpet that is loose or worn. What can I do on the outside of my home? Use bright outdoor lighting. ? Fix the edges of walkways and driveways and fix any cracks. ? Remove anything that might make you trip as you walk through a door, such as a raised step or threshold. ? Trim any bushes or trees on paths to your home. ? Check to see if handrails are loose or broken and that both sides of all steps have handrails. ? Install guardrails along the edges of any raised decks and porches. ? Clear paths of anything that can make you trip, such as tools or rocks. ? Have leaves, snow, or ice cleared regularly. ? Use sand or salt on paths during winter. ? Clean up any spills in your garage right away. This includes grease or oil spills. What other actions can I take? Wear shoes that: ? Have a low heel. Do not wear high heels. ? Have rubber bottoms. ? Feel good on your feet and fit well. ? Are closed at the toe. Do not wear open-toe sandals. ? Use tools that help you move around if needed. These include: ? Canes. ? Walkers. ? Scooters. ? Crutches. ? Review your medicines with your doctor. Some medicines can make you feel dizzy. This can increase your chance of falling. Ask your doctor what else you can do to help prevent falls. Where to find more information ? Centers for Disease Control and Prevention, STEADI: www.cdc.gov ? National Madeline on Aging: www.jarod.nih.gov Contact a doctor if: ? You are afraid of falling at home. ? You feel weak, drowsy, or dizzy at home. ? You fall at home. Summary ? There are many simple things that you can do to make your home safe and to help prevent falls. ? Ways to make your home safe include removing things that can make you trip and installing grab barsin the bathroom. ? Ask for help when making these changes in your home. This information is not intended to replace advice given to you by your health care provider. Make sure you discuss any questions you have with your health care provider. Document Revised: 12/07/2021 Document Reviewed: 10/08/2020 [employer] Patient Education ?? 2022 [employer] Tests Performed Medications and Immunizations Administered Given 0.9% NaCl bolus, 1000 mL, IV Bolus Lab Test Name Test Result Date/Time WBC 11.8 x10^3/mcL 01/17/2023 16:00 EDT RBC 5.3 x10^6/mcL 01/17/2023 16:00 EDT Hgb 15.1 g/dL 01/17/2023 16:00 EDT Hct 44.6 % 01/17/2023 16:00 EDT MCV 84.2 fL 01/17/2023 16:00 EDT MCH 28.5 pg 01/17/2023 16:00 EDT MCHC 33.9 g/dL 01/17/2023 16:00 EDT RDW-CV 13.4 % 01/17/2023 16:00 EDT Platelets 395 x10^3/mcL 01/17/2023 16:00 EDT Neutro Auto 63.2 % 01/17/2023 16:00 EDT Lymph Auto 26.7 % 01/17/2023 16:00 EDT Lyon Auto 8.1 % 01/17/2023 16:00 EDT Eos, Auto 0.8 % 01/17/2023 16:00 EDT Basophil Auto 0.4 % 01/17/2023 16:00 EDT Imm Gran Auto 0.8 % 01/17/2023 16:00 EDT Neutro Absolute 7.5 x10^3/mcL 01/17/2023 16:00 EDT Sodium Level 139 mmol/L 01/17/2023 16:00 EDT Potassium Level 3.1 mmol/L 01/17/2023 16:00 EDT Chloride Level 100 mmol/L 01/17/2023 16:00 EDT CO2 26 mmol/L 01/17/2023 16:00 EDT Alk Phos 94 unit/L 01/17/2023 16:00 EDT AST 21 unit/L 01/17/2023 16:00 EDT ALT 27 unit/L 01/17/2023 16:00 EDT BUN 20 mg/dL 01/17/2023 16:00 EDT Glucose Level 123 mg/dL 01/17/2023 16:00 EDT Creatinine Level 1.01 mg/dL 01/17/2023 16:00 EDT eGFR AA 59 01/17/2023 16:00 EDT eGFR Non-AA 59 01/17/2023 16:00 EDT Calcium Level 9.7 mg/dL 01/17/2023 16:00 EDT Protein Total 7.5 g/dL 01/17/2023 16:00 EDT Albumin Level 4.2 g/dL 01/17/2023 16:00 EDT Bilirubin Total 0.5 mg/dL 01/17/2023 16:00 EDT Troponin-I 6.7 pg/mL 01/17/2023 16:00 EDT Patient/Livestock Speculator Signature Patient Name:CYRIL BAKER I have received this information and my questions have been answered. Patient/Livestock Speculator Name: Patient/Livestock Speculator Signature: Relationship to Patient: Witness Name/Signature: Date: Electronically Signed on: 01/17/2023 18:25 EDTSigned by:MRCoco Emergency department Note * Marilyn Trammell M: PERFORM Event Display: ED Notes Authored Date: [id number] Patient Care team information Care Team Personnel Name: Alyx Verduzco MD Position: No Access Member Role: Informed Provider Address: Address: [id number] [place] [address] Name: Hugo Pisano MD Position: Physician Member Role: Admitting Physician Address: Address: [address] [place] [address] Name: Aimee Santos Position: Nurse Member Role: ED Nurse Care Team Related Persons Name: MARILYN CANCINO Name: ALESHIA DOWNING
--- OUTSIDE RECORDS SUMMARY | 2023-02-18 16:00 | XMS_ITS | Continuity of Care Document ---
Author Name Unknown Organization [facility] Address [address] [place] [address] Care Team Providers Care Draw Hand Name Role Phone [facility] Physici an Encounter [facility] Date(s): 09/06/22 - 09/06/[address] [address] Encounter Diagnosis Avulsion fracture of right ankle(Discharge Diagnosis) - 09/06/22 Discharge Disposition: Home or Self Care Attending Physician: Laurent Wyatt MD Admitting Physician: Laurent Wyatt MD Allergies, Adverse Reactions, Alerts Substance Reaction Severity Status prochlorperazine Unknown Active lisinopril Unknown Active sulfa drugs Unknown Active Immunizations Given and Recorded Vaccine Date Status [...] 0 Refill(s) Start Date: 09/06/22 Status: Ordered Vital Signs Most recent to oldest [Reference Range]: 1 2 Temperature Temporal Artery [36-38 Deg C ] 36.6 Deg C (09/06/22 1:15 PM) Peripheral Pulse Rate [60-100 bpm] 68 bp m (09/06/22 4:18 PM) 74 bpm (09/06/22 1:15 PM) Respiratory Rate [12-24 br/min] 16 br/mi n (09/06/22 1:15 PM) Blood Pressure [90-140/60-90 mmHg] 123/5 4mmHg (09/06/22 4:18 PM) 116/59mmHg (09/06/22 1:15 PM) Weight Dosing 72.57 kg (09/06/22 2:05 PM) Weight Estimated 72.57 kg (09/06/22 1:15 PM) Height/Length Dosing 160.000 cm (09/06/22 2:05 PM) Height/Length Estimated 160.000 cm (09/06/22 1:15 PM) Social History Social History Type Response Tobacco Never tobacco user T obacco Use:. Sex Female Hospital Discharge Instructions Follow Up Care 09/06/2022 13:15:47 With:Alyx Verduzco MD Address: [address] [address]- When:1 week Emergency department Discharge instructions * Laurent Wyatt MD: PERFORM Event Display: ED Discharge Information Authored Date: [id number] OLIVIA CYRIL :1950 Age:72 years Sex:Female Visit Date:09/06/2022 Primary Care Physician: Alyx Verduzco MD Discharge Instructions We would like to thank you for allowing us to assist you with your healthcare needs. The following includes patient education materials and information regarding your injury/illness. Diagnosis from Today's Visit Avulsion fracture of right ankle Discharge Vitals Temperature??(Temporal Artery) 97.9 ??F (36.6 ??C) Heart Rate??(Peripheral) 74 Respiratory Rate?? 16 Blood Pressure?? 116/59?? Height?? 62.99 in (160.000 cm) Weight??(Estimated) 160.02 lb (72.57 kg) Allergies lisinopril prochlorperazine sulfa drugs What to Do Next Instructions from Your Care Team Thank you for coming to the emergency department today, it has been a pleasure to take care of you.??Thankfully the CT scans of the head or neck did not show any internal bleeding, dislocations. ??The x-rays on your shoulder were normal but the ankle did show a likely avulsion fracture.?? We wouldrecommend wearing your boot??with any weightbearing activities and following up with either your primary doctor or orthopedics within the next week or so for recheck.?The phone number for [facility] orthopedics is [phone] if you would like to make a follow-up appointment with them.?? Please return to the emergency department you have any new or concerning symptoms including new areas of pain, any numbness, tingling, weakness, or if you have any other symptoms that concern you. You Need to Schedule the Following Appointments Follow Up with??Billy MENENDEZ, Alyx Yu MD When:??Within 1 week Where: [address] [address]- You were treated today on an emergency [...] (Vitamin D with Minerals oral tablet, chewable) Tests Performed Medications and Immunizations Administered Given naproxen, 500 mg, Oral Tylenol, 1000 mg, Oral Patient/Medical Attendant Signature Patient Name:CYRIL BAKER I have received this information and my questions have been answered. Patient/Medical Attendant Name: Patient/Medical Attendant Signature: Relationship to Patient: Witness Name/Signature: Date: Electronically Signed on: 09/06/2022 16:06 EDTSigned by:BALAJI Emergency department Note * Marilyn Trammell: PERFORM Event Display: ED Notes Authored Date: [id number] Patient Care team information Care Team Personnel Name: Alyx Verduzco MD Position: No Access Member Role: Informed Provider Address: Address: [address] [place] [address]- [place] Name: Aimee Santos Position: Nurse Member Role: ED Nurse Name: Laurent Wyatt MD Position: Physician Member Role: ED Physician Address: Address: [address] [place] [address] [place] [address] [place] Care Team Related Persons Name: MARILYN CANCINO Name: ALESHIA DOWNING
[2023-02-18 16:40] LABS: Abs Immature Grans 0.06 10^3/uL (0.0-0.06); Absolute Basophil Count 0.08 10^3/uL (0.0-0.2); Absolute Eosinophil Count 0.28 10^3/uL (0.0-0.7); Absolute Lymphocyte Count 3.75 10^3/uL (1.2-3.4); Absolute Monocyte Count 0.81 10^3/uL (0.1-0.8); Absolute Neutrophil Count 7.73 10^3/uL (1.2-6.7); Basophils % 0.6; Eosinophils % 2.2; HCT 43.2 % (36.0-46.0); HGB 14.2 g/dL (11.2-15.7); Immature Grans % 0.5; Lymphocytes % 29.5; MCH 28.2 pg (27.0-33.0); MCHC 32.9 % (32.0-36.0); MCV 86 fL (80-95); MPV 9.1 fL (8.0-11.0); Monocytes % 6.4; Neutrophils % 60.8; Platelet Count 406 10^3/uL (130-400); RBC 5.04 10^6/uL (3.93-5.22); RDW 13.6 % (11.7-14.6); RDW-SD 42.4 fL; WBC 12.71 10^3/uL (4.4-10.8)
[2023-02-18] MEDS: Lactated Ringers 1,000 ML 1000 ML IV (16:40)
--- NOTE | 2023-02-18 16:54 | DI.CT_ITS ---
Exam(s) CT HEAD WO EXAM: CT HEAD WO CLINICAL HISTORY: fall, [place]. TECHNIQUE: Imaging Protocol: Axial computed tomography images with coronal and sagittal reformatted images were created and reviewed COMPARISON: No exams were available for comparison FINDINGS: There are no skull fractures. There is no fluid in the visualized paranasal sinuses. There is no evidence of intracranial hemorrhage, mass effect, or shift of midline structures. There are no extra-axial fluid collections. The ventricles are not enlarged or shifted and there is no blo od within the ventricular system nor within the basal cisterns. There is some mild bilateral periventricular hypodensity consistent with chronic small vessel disease . No territorial infarct evident. IMPRESSION: No acute intracranial findings on this noninfused CT scan of the brain. Called by myself to ER RADIATION DOSE DELIVERED: Total DLP DATA REPOSITORY: All CT scans at this facility are submitted to the National Radiology Data Registry (NRDR) Dose Index Registry (DIR) with the [employer] (A[employer]). RADIATION OPTIMIZATION: All CT scans at this facility use at least one of these dose optimization te chniques: automated exposure control; mA and/or kV adjustment per patient size (includes targeted exa ms where dose is matched to clinical indication); or iterative reconstruction.
[2023-02-18 17:02] LABS: ALT 23 U/L (14-59); AST 16 U/L (15-37); Albumin 3.9 g/dL (3.4-5.0); Alkaline Phosphatase 131 U/L (46-116); Anion Gap 9.6 mmol/L (3-11); BUN 17 mg/dL (7-18); Bilirubin, Total 0.4 mg/dL (0.2-1.0); CO2 28.4 mmol/L (21.0-32.0); CREATININE 0.9 mg/dL (0.55-1.02); Calcium 10.2 mg/dL (8.5-10.1); Chloride 103 mmol/L (98-107); Glucose 104 mg/dL (74-106); Potassium 4.2 mmol/L (3.5-5.1); Sodium 141 mmol/L (136-145); TSH (W/Ref FT4) 1.19 uIU/mL (0.36-3.74); Total Protein 7.6 g/dL (6.4-8.2)
[2023-02-18 17:33] LABS: Bilirubin Negative (Negative); Blood Negative (Negative); Clarity Sl Cloudy (Clear); Glucose Negative (Negative); Ketones 15 mg/dL (Negative); Leukocyte Esterase Trace (Negative); Nitrite Positive (Negative)
[2023-02-18 17:39] LABS: Bacteria Many HPF (Negative); C & S Indicated? Yes; Casts Negative LPF (Negative); Crystals Negative HPF (Negative); Epithelial Cells Few HPF (Negative); Mucus Negative (Negative); RBC 0-2 HPF (0-2)
[2023-02-18 17:45] VITALS: BP 100/62; PULSE 76; RESP 16; TEMP 36.3; O2SAT 97
[2023-02-18 19:10] VITALS: BP 122/60; PULSE 68; RESP 17; TEMP 36.3; O2SAT 96
[2023-02-18] MEDS: Cephalexin 500 MG CAP, 4 CAPS/BTL PO (19:12)
--- NOTE | 2023-02-18 19:40 | NUR.NOTE ---
pt left necklace and earings. we left message that she has left these items.Nursing Note:
--- NOTE | 2023-02-18 19:57 | W.ED.GENAD ---
Discharge Plan Discharge Details Chief Complaint: Fall/Non TraumaCriteria Clinical Impression: Orthostasis, Acute UTI, Head injury Primary Care Provider: Unknown,Unknown ED Provider: Leticia Hanna Home Meds and New Rx's Prescriptions: New amlodipine 5 mg tablet 5 mg PO DAILY Qty: 14 0RF cephalexin 500 mg capsule 500 mg PO BID 7 Days Qty: 14 0RF Continued fluoxetine 40 mg capsule Patient Comments: TAKE 1 CAPSULE BY MOUTH ONCE DAILY atorvastatin 40 mg tablet Patient Comments: TAKE 1 TABLET BY MOUTH ONCE DAILY AT BEDTIME diltiazem HCl 120 mg capsule,extended release 24 hr PO Patient Comments: TAKE 1 CAPSULE BY MOUTH ONCE DAILY levothyroxine 50 mcg tablet Patient Comments: TAKE 1 TABLET BY MOUTH ONCE DAILY nystatin [Nystop] 100,000 unit/gram powder TOPICAL Patient Comments: APPLY A SMALL AMOUNT TO SKIN 3 TIMES DAILY NEEDED losartan-hydrochlorothiazide 50-12.5 mg tablet Patient Comments: TAKE 1 TABLET BY MOUTH ONCE DAILY metformin 500 mg tablet extended release 24 hr PO Patient Comments: TAKE 2 TABLETS BY MOUTH ONCE DAILY Rybelsus 14 mg tablet PO Patient Comments: TAKE 1 TABLET BY MOUTH ONCE DAILY Discontinued amlodipine 10 mg tablet Discharge Instructions Instructions: Urinary Tract Infection in Women (ED), Head Injury (ED) Additional Instructions: stop taking the 10 mg amlodipine and start the 5 mg amlodipine tomorrow take antibiotic as prescribed for uti return with new or worsening complaints use caution when going from sitting to standing Medical Decision Making 72-year-old female in no acute distress, alert and oriented, GCS 15, ambulatory steady gait with nonfocal neurological exam, pupils equal round reactive to light and accommodation, abrasion noted to forehead No midline tenderness CT head does not show evidence of acute abnormality per radiology interpretation my review She was orthostatic initially, dropping into the 90s from 120s, gave 1 L of fluid?she is no longer orthostatic but her blood pressure was 118/39, I am going to cut her amlodipine by 5 mg and have her recheck her blood pressure over the course of the neck several days and place her on list for acute follow-up from the emergency department, she states that she has been having trouble getting appointments with her doctor Ambulatory with steady gait here, no longer orthostatic, her urinalysis is concerning for possible infection, she is nitrate positive and leukocyte Estrace positive with 10-20 white blood cells, will treat with Keflex pending urine culture At this time and think she stable for discharge home, she is alert and oriented, she has no additional visible evidence of trauma except for right knee she has a small abrasion but range of motion is intact, distal pulses are intact Return precautions reviewed and patient expressed understanding, no significant weakness to extremities, HPI General Date/Time Provider Initiated Documentation: 02/18/23 15:15. HPI Narrative: This 72-year-old female presents with past medical history of hypertension, hyperlipidemia diabetes with report of intermittent falls. Patient states last fall was on the . She was in [place] and was walking and she states her right leg gave out, she has a history of spine surgery and has some paresthesias in this right leg, this is not new but she feels as though she is falling more frequently and frequently her right leg is affected. She had another episode in December that was similar per patient. She states she does not necessarily feel lightheaded when these episodes occur but she denies any loss of consciousness. She remembers the entirety of the event per patient. She did hit her head on the she reports. She was sent in to have a CT of her head from her visiting nurse per patient. She has not had an additional episode since the per patient. She denies current headache. She does state when she bends over she does feel lightheaded when she stands up and does have a headache. She denies any neck pain, chest pain, shortness of breath, palpitations, or current dizziness. Related Data Home Medications Medication Instructions Recorded Confirmed amlodipine 5 mg tablet 5 mg PO DAILY #14 tabs 02/18/23 atorvastatin 40 mg tablet mg 02/18/23 cephalexin 500 mg capsule 500 mg PO BID 7 days #14 caps 02/18/23 diltiazem HCl 120 mg capsule,24 mg PO 02/18/23 hr,extended release fluoxetine 40 mg capsule mg 02/18/23 levothyroxine 50 mcg tablet mcg 02/18/23 losartan 50 mg-hydrochlorothiazide tab 02/18/23 12.5 mg tablet metformin 500 mg tablet,extended mg PO 02/18/23 release 24 hr nystatin 100,000 unit/gram topical topical 02/18/23 powder (Nystop) semaglutide 14 mg tablet (Rybelsus) mg PO 02/18/23 Previous Rx's Medication Instructions Recorded amlodipine 5 mg tablet 5 mg PO DAILY #14 tabs 02/18/23 cephalexin 500 mg capsule 500 mg PO BID 7 days #14 caps 02/18/23 Allergies Allergy/AdvReac Type Severity Reaction Status Date / Time lisinopril Allergy Unverified 02/18/23 15:33 prochlorperazine Allergy Unverified 02/18/23 15:33 Sulfa (Sulfonamide Allergy Unverified 02/18/23 15:33 Antibiotics) General Stated Complaint: Fall/Non TraumaCriteria JAIRO: 3 PFSH All Active Problems (Updated 02/18/23 @ 19:01 by SADIQ Fuentes) Head injury (Acute) Acute UTI (Acute) Orthostasis (Acute) Social History Smoking/Tobacco Use Status: Never Smoking risk assessment performed?: Yes Drug use: Never Substance use type: does not use Housing: house Do you feel safe at home: Yes Do you feel safe in your relationship?: Yes Course Vital Signs Vital signs: Vital Signs Temperature 36.5 C 02/18/23 15:11 Pulse 72 02/18/23 15:11 Respiratory Rate 18 02/18/23 15:11 Blood Pressure 112/54 L 02/18/23 15:11 Pulse Oximetry 95 02/18/23 15:11 Temperature 36.3 C L 02/18/23 19:10 Temperature Source Temporal Artery Scan 02/18/23 17:45 Pulse 68 02/18/23 19:10 Respiratory Rate 17 02/18/23 19:10 Respiratory Effort Normal, Non-Labored 02/18/23 15:15 Blood Pressure 122/60 02/18/23 19:10 Blood Pressure Position Sitting 02/18/23 15:11 Pulse Oximetry 96 02/18/23 19:10 Oxygen Delivery Method Room Air 02/18/23 19:10 Oxygen Flow Rate 0 02/18/23 19:10 Lab/Test Results Lab/Test Results: 02/18/23 17:25 Urine - Reflex from Ua Urine Culture - Pending Laboratory Tests Range/Units 02/18/23 02/18/23 02/18/23 16:09 16:30 17:25 WBC (4.4-10.8) 10^3/uL 12.71 H RBC (3.93-5.22) 10^6/uL 5.04 Hgb (11.2-15.7) g/dL 14.2 Hct (36.0-46.0) % 43.2 MCV (80-95) fL 86 MCH (27.0-33.0) pg 28.2 MCHC (32.0-36.0) % 32.9 RDW (11.7-14.6) % 13.6 Plt Count (130-400) 10^3/uL 406 H MPV (8.0-11.0) fL 9.1 Immature Gran % 0.5 Neutrophils % 60.8 Lymphocytes % 29.5 Monocytes % 6.4 Eosinophils % 2.2 Basophils % 0.6 Nucleated RBC % (0.0-0.3) % 0.0 Absolute Neutrophils (1.2-6.7) 10^3/uL 7.73 H Absolute Lymphocytes (1.2-3.4) 10^3/uL 3.75 H Absolute Monocytes (0.1-0.8) 10^3/uL 0.81 H Absolute Eosinophils (0.0-0.7) 10^3/uL 0.28 Absolute Basophils (0.0-0.2) 10^3/uL 0.08 Sodium (136-145) mmol/L 141 Potassium (3.5-5.1) mmol/L 4.2 Chloride (98-107) mmol/L 103 Carbon Dioxide (21.0-32.0) mmol/L 28.4 Anion Gap (3-11) mmol/L 9.6 BUN (7-18) mg/dL 17 Creatinine (0.55-1.02) mg/dL 0.9 Est GFR (CKD-EPI 2020) (mL/min/1.73m2) 67.50 Glucose (74-106) mg/dL 104 Calcium (8.5-10.1) mg/dL 10.2 H Magnesium (1.8-2.4) mg/dL 2.0 Total Bilirubin (0.2-1.0) mg/dL 0.4 AST (15-37) U/L 16 ALT (14-59) U/L 23 Alkaline Phosphatase (46-116) U/L 131 H Total Protein (6.4-8.2) g/dL 7.6 Albumin (3.4-5.0) g/dL 3.9 TSH (0.36-3.74) uIU/mL 1.19 Urine Color (Yellow) Yellow Urine Clarity (Clear) Sl Cloudy Urine pH (5-8) 6.0 Ur Specific [place] (1.005-1.025) 1.020 Urine Protein (Negative) mg/dL Trace H Urine Ketones (Negative) mg/dL 15 H Urine Blood (Negative) Negative Urine Nitrite (Negative) Positive H Urine Bilirubin (Negative) Negative Urine Urobilinogen (Up to 0.2) mg/dL 1.0 H Ur Leukocyte Esterase (Negative) Trace H Urine RBC (0-2) HPF 0-2 Urine WBC (0-5) HPF 10-20 H Ur Epithelial Cells (Negative) HPF Few Urine Crystals (Negative) HPF Negative Urine Bacteria (Negative) HPF Many Urine Casts (Negative) LPF Negative Urine Mucus (Negative) Negative Ur Culture Indicated? Yes Urine Glucose (Negative) mg/dL Negative
== END 2023-02-18 19:12 | disposition home or self-care (01) ==
PROVIDERS: Emergency Provider Physician Assistant
DX: I95.1 Orthostatic hypotension (principal); N39.0 Urinary tract infection, site not specified; S00.80XA Unspecified superficial injury of other part of head, initial encounter; R40.2412 Glasgow coma scale score 13-15, at arrival to emergency department; W18.30XA Fall on same level, unspecified, initial encounter; Z91.81 History of falling; Y93.89 Activity, other specified
CPT/HCPCS: 36415; 80053; 87077; 93005; 96360; 99284; 70450; 81003; 81015; 83735; 84443; 85025; 87086; 87186; 93010

== ENCOUNTER → 2023-04-27 08:01 | Outpatient (BNVA) | payer OTHER, SELFPAY | PROVIDERS: PCP Physician Assistant; Referring Provider Physician Assistant; Visit Provider Psychiatry & Neurology Neurology | DX: R29.6 Repeated falls (principal); M25.551 Pain in right hip; M54.16 Radiculopathy, lumbar region; R29.2 Abnormal reflex; I95.1 Orthostatic hypotension | CPT/HCPCS: 99215; G2212 ==

== ENCOUNTER → 2023-06-13 10:00 | Outpatient (BNVA) | payer OTHER, SELFPAY | PROVIDERS: PCP Physician Assistant; Referring Provider Physician Assistant; Visit Provider Psychiatry & Neurology Neurology | DX: R29.6 Repeated falls (principal); M25.551 Pain in right hip; M54.50 Low back pain, unspecified; R29.2 Abnormal reflex; M54.16 Radiculopathy, lumbar region; I95.1 Orthostatic hypotension | CPT/HCPCS: 99214 ==

== ENCOUNTER → 2023-12-12 10:24 | Outpatient (BNVA) | payer OTHER, SELFPAY | PROVIDERS: Visit Provider Psychiatry & Neurology Neurology | DX: R41.3 Other amnesia (principal); R29.6 Repeated falls; M25.551 Pain in right hip; M54.50 Low back pain, unspecified; R29.2 Abnormal reflex; M54.16 Radiculopathy, lumbar region; I95.1 Orthostatic hypotension | CPT/HCPCS: 99215 ==

== ENCOUNTER → 2024-03-06 10:42 | Outpatient (BNVA) | payer OTHER, SELFPAY | PROVIDERS: Visit Provider Psychiatry & Neurology Neurology | DX: R29.6 Repeated falls (principal); M25.551 Pain in right hip; M54.50 Low back pain, unspecified; R29.2 Abnormal reflex; M54.16 Radiculopathy, lumbar region; I95.1 Orthostatic hypotension; I65.22 Occlusion and stenosis of left carotid artery; R41.3 Other amnesia | CPT/HCPCS: 99214 ==

== ENCOUNTER → 2024-09-04 11:12 | Outpatient (BNVA) | payer MEDICARE, SELFPAY | PROVIDERS: PCP Family Medicine; Referring Provider Family Medicine; Visit Provider Psychiatry & Neurology Neurology | DX: R29.6 Repeated falls (principal); M25.551 Pain in right hip; M54.16 Radiculopathy, lumbar region; R29.2 Abnormal reflex; R29.818 Other symptoms and signs involving the nervous system; R41.3 Other amnesia; I65.22 Occlusion and stenosis of left carotid artery; Z79.02 Long term (current) use of antithrombotics/antiplatelets | CPT/HCPCS: 99214 ==

== ENCOUNTER → 2025-01-28 10:58 | Outpatient (BNVA) | payer MEDICARE, SELFPAY | PROVIDERS: PCP Family Medicine; Referring Provider Family Medicine; Visit Provider Psychiatry & Neurology Neurology | DX: R41.3 Other amnesia (principal); R29.6 Repeated falls; I65.22 Occlusion and stenosis of left carotid artery; I95.1 Orthostatic hypotension; R29.2 Abnormal reflex; R29.818 Other symptoms and signs involving the nervous system; M25.551 Pain in right hip; M54.16 Radiculopathy, lumbar region; E11.59 Type 2 diabetes mellitus with other circulatory complications; I10 Essential (primary) hypertension; Z79.02 Long term (current) use of antithrombotics/antiplatelets | CPT/HCPCS: 99214 ==